=== PATIENT | female | born 1995 | race Caucasian/White ===

== ENCOUNTER 2021-05-12 01:30 | Emergency (ER) | payer OTHER ==
[2021-05-12 01:44] VITALS: BMI 25.7
[2021-05-12 06:43] VITALS: BP 121/75; PULSE 108; TEMP 98.1
== END 2021-05-12 07:08 | disposition home or self-care (01) ==
LOC: JER 01:30
DX: T78.40XA Allergy, unspecified, initial encounter (principal)
CPT/HCPCS: 87086; 87186; 99283-25